=== PATIENT | male | born 1950 | race Caucasian/White ===

== ENCOUNTER 2021-07-14 08:58 | Outpatient (REF) | payer BC, SELFPAY ==
[2021-07-14 11:40] LABS: Hematocrit 48.8 % (42.0-52.0); Hemoglobin 16.5 g/dl (14.0-18.0); Mean Corpuscular HGB Conc 33.8 g/dl (31.0-36.0); Mean Corpuscular Hemoglobin 28.6 pg (27.0-33.0); Mean Corpuscular Volume 84.6 fL (80.0-98.0); Mean Platelet Volume 9.9 fL (9.4-12.4); Platelet Count 251 X10*3/uL (160-400); Red Blood Count 5.77 X10*6/uL (4.60-5.80); Red Cell Distribution Width 12.9 % (11.0-16.0); White Blood Count 6.4 X10*3/uL (4.8-10.8)
[2021-07-14 12:16] LABS: Anion Gap 11 (12-20); Blood Urea Nitrogen 14 mg/dL (9-16); Calcium 9.7 mg/dL (8.4-10.2); Carbon Dioxide 25 mmol/L (22-29); Chloride 102 mmol/L (96-108); Cholesterol 216 mg/dL; Estimated Glomerular Filt Rate > 60; Glucose Fasting 92 mg/dL (60-99); HDL Cholesterol 62 mg/dL; LDL Cholesterol Calculated 134 mg/dl; Potassium 4.4 mmol/L (3.3-5.1); Sodium 134 mmol/L (135-145); Triglycerides 101 mg/dL
[2021-07-14 12:24] LABS: Erythrocyte Sedimentation Rate 1 MM/HR (0-15)
[2021-07-14 12:38] LABS: Vitamin B12 480 pg/mL (200-900)
[2021-07-15 18:07] LABS: Lyme Abs Screen <0.90 index
[2021-07-16 17:02] LABS: IgA 127 mg/dL (70-320); IgG 683 mg/dL (600-1540); IgM 25 mg/dL (50-300)
== END 2021-07-14 08:59 | disposition home or self-care (01) ==
LOC: HO.HMGCLDS 08:58
PROVIDERS: PCP Family Medicine; Visit Provider Psychiatry & Neurology Neurology
DX: G43.109 Migraine with aura, not intractable, without status migrainosus (principal); I10 Essential (primary) hypertension; I67.9 Cerebrovascular disease, unspecified
CPT/HCPCS: 36415; 80048; 80061; 82607; 82784; 85027; 85652; 86334; 86617; 86618

== ENCOUNTER 2021-07-23 13:25 | Outpatient (REF) | payer BC, SELFPAY ==
--- NOTE | ~2021-07-23 | MR_ITS ---
EXAMINATION: MR BRAIN WITHOUT AND WITH CONTRAST CLINICAL INFORMATION: Headache and vertigo. COMPARISON: None TECHNIQUE: Multiplanar, multisequence MRI of the brain was obtained without use of intravenous gadolinium. FINDINGS: Scattered foci and focal areas of T2 prolongation throughout the subcortical, periventricular and deep white matter. No focal reduced diffusion is seen to suggest acute or subacute cerebral ischemia. No intracranial mass, intracerebral edema, intra-axial blood products, midline shift, or extra-axial collection is visualized. No pathologic enhancement is appreciated on postcontrast sequences. The ventricles and sulcal spaces appear normal. Normal arterial and venous vascular flow voids are present. The paranasal sinuses are well aerated. MR/MR head/brain wo con IMPRESSION: Scattered supratentorial white matter signal abnormalities, nonspecific. Statistically, this is most often seen in setting of chronic microangiopathic gliosis, but can also be seen in setting of demyelinating diseases, inter mala.
== END 2021-07-23 13:26 | disposition home or self-care (01) ==
LOC: HO.MRI 13:25
PROVIDERS: Visit Provider Psychiatry & Neurology Neurology
DX: I67.9 Cerebrovascular disease, unspecified (principal); R26.81 Unsteadiness on feet
CPT/HCPCS: 70551